=== PATIENT | male | born 1955 | race Caucasian/White ===

== ENCOUNTER 2016-10-12 12:37 | Emergency (ER) | payer MEDICARE ==
[~2016-10-12] VITALS: Ht 182.9 cm; Wt 97.7 kg
[2016-10-12 12:39] VITALS: TEMP 97.9
[2016-10-12 13:06] LABS: BASO % 0.3 % (0.0-2.0); EOS # 0.4 (0.0-0.7); GRAN # 7.2 (1.4-6.5); GRAN % 60.7 % (42.2-75.2); LYMPH # 3.2 (1.2-3.4); LYMPH % 27.2 % (20.0-51.0); MEAN CELL VOLUME 84 fl (80.0-100.0); MEAN CORPUSCULAR HGB CONC 33 g/dl (33.0-37.0); MEAN PLATELET VOLUME 9.5 fl (7.4-10.4); MONO % 8.2 % (1.7-9.3); PLATELET COUNT 448 K/mm3 (130-400); RED BLOOD COUNT 4.17 M/mm3 (4.20-5.60); WHITE BLOOD COUNT 11.9 K/mm3 (4.8-10.8)
[2016-10-12 13:08] LABS: HEMATOCRIT 34.8 % (42.0-52.0); HEMOGLOBIN 11.4 g/dl (13.5-18.0); MEAN CORPUSCULAR HEMOGLOBIN 27 pg (27.0-31.0)
[2016-10-12] MEDS ORDERED: INVOKAMET3 PO (13:11)
[2016-10-12] MEDS ORDERED: LYRICA200 MG PO (13:12)
[2016-10-12] MEDS ORDERED: ZOCOR 40MG40 MG PO (13:12)
[2016-10-12] MEDS ORDERED: FLOMAX 0.40.4 MG/CAP PO (13:13)
[2016-10-12] MEDS ORDERED: PRILOSEC 20MG20 MG PO (13:13)
[2016-10-12] MEDS ORDERED: CYMBALTA 60MG60 MG PO (13:14)
[2016-10-12] MEDS ORDERED: LEVOXYL0.05 MG PO (13:14)
[2016-10-12] MEDS ORDERED: DOLOPHINE HCL5 MG PO (13:15)
[2016-10-12 13:22] LABS: ADJUSTED CALCIUM 9.8 mg/dL (8.4-10.2); ALBUMIN 4.1 gm/dL (3.5-5.0); BILIRUBIN,TOTAL 0.5 mg/dL (0.0-1.0); C-REACTIVE PROTEIN 2.5 mg/dL (0.0-0.9); CALCIUM 9.9 mg/dL (8.4-10.2); CREATININE, serum 0.74 mg/dL (0.66-1.25); POTASSIUM 4.3 mmol/L (3.4-5.0); TOTAL PROTEIN 8.9 gm/dL (6.4-8.2)
[2016-10-12 14:01] LABS: PH 7 (5-8); SQUAMOUS EPITHELIAL 0-2 /hpf; URINE APPEARANCE Clear; URINE BACTERIA None Seen /hpf; URINE BILIRUBIN Negative (NEGATIVE); URINE BLOOD Negative (NEGATIVE); URINE COLOR Yellow; URINE GLUCOSE 3+ (NEGATIVE); URINE KETONE Trace (NEGATIVE); URINE RBC 0-2 /hpf; URINE UROBILINOGEN Negative (NEGATIVE); URINE WBC 0-2 /hpf
[2016-10-12] MEDS ORDERED: CIPRO 250MG TA250 MG PO (14:59)
[2016-10-12 15:59] VITALS: BP 139/78; PULSE 80
== END 2016-10-12 16:00 | disposition home or self-care (01) ==
LOC: COL.ER 12:37
PROVIDERS: Physician Assistant
DX: R33.9 Retention of urine, unspecified (principal); K59.00 Constipation, unspecified; G89.29 Other chronic pain; I10 Essential (primary) hypertension; E11.40 Type 2 diabetes mellitus with diabetic neuropathy, unspecified; K21.9 Gastro-esophageal reflux disease without esophagitis; Z87.39 Personal history of other diseases of the musculoskeletal system and connective tissue; Z90.49 Acquired absence of other specified parts of digestive tract; Z90.89 Acquired absence of other organs; Z79.4 Long term (current) use of insulin; Z79.84 Long term (current) use of oral hypoglycemic drugs
CPT/HCPCS: J1170; J2405; J2550; J7030; Q9967

== ENCOUNTER 2016-11-08 11:49 | Observation (INO) | payer MEDICARE ==
[2016-11-08] VITALS (8 sets, daily range): BP systolic 109–124; BP diastolic 61–77; PULSE 82–93; TEMP 98.7
[~2016-11-08] VITALS: Ht 182.9 cm; Wt 91.4 kg
[~2016-11-08 11:49] MED LIST: CIPRO 250MG TA250 MG PO; CYMBALTA 60MG60 MG PO; DOLOPHINE HCL5 MG PO; FLOMAX 0.40.4 MG/CAP PO; INVOKAMET3 PO; LEVOXYL0.05 MG PO; LYRICA200 MG PO; PRILOSEC 20MG20 MG PO; ZOCOR 40MG40 MG PO
[2016-11-08] MEDS ORDERED: ASPIRIN E.C. 8181 MG PO (13:23)
[2016-11-09 01:57] VITALS: BP 114/63; PULSE 68; TEMP 98.5
[2016-11-09 05:28] VITALS: BP 116/72; PULSE 71; TEMP 97.7
[2016-11-09 05:39] LABS: MEAN CELL VOLUME 83 fl (80.0-100.0); MEAN CORPUSCULAR HGB CONC 31 g/dl (33.0-37.0); MEAN PLATELET VOLUME 9.2 fl (7.4-10.4); PLATELET COUNT 428 K/mm3 (130-400); RED BLOOD COUNT 3.94 M/mm3 (4.20-5.60); WHITE BLOOD COUNT 8.2 K/mm3 (4.8-10.8)
[2016-11-09 05:43] LABS: HEMATOCRIT 32.8 % (42.0-52.0); HEMOGLOBIN 10.1 g/dl (13.5-18.0); MEAN CORPUSCULAR HEMOGLOBIN 26 pg (27.0-31.0)
[2016-11-09 09:37] VITALS: BP 97/59; PULSE 76; TEMP 98.3
[2016-11-09 13:50] VITALS: BP 104/61; PULSE 80; TEMP 98.1
[2016-11-09 17:47] VITALS: BP 111/67; PULSE 72; TEMP 98
[2016-11-09 22:18] VITALS: BP 105/60; PULSE 82; TEMP 98.5
[2016-11-10 01:50] VITALS: BP 128/69; PULSE 77; TEMP 98.5
[2016-11-10 06:06] VITALS: BP 98/53; PULSE 71; TEMP 97.5
[2016-11-10 10:26] VITALS: BP 109/71; PULSE 73; TEMP 97.7
== END 2016-11-10 15:00 | disposition home or self-care (01) ==
LOC: SDCO 11:49 → SURG 17:07 → SDCO 11-09 09:22 → SURG 11-10 15:00
PROVIDERS: Urology
DX: N40.1 Benign prostatic hyperplasia with lower urinary tract symptoms (principal); R33.9 Retention of urine, unspecified; J45.909 Unspecified asthma, uncomplicated; K21.9 Gastro-esophageal reflux disease without esophagitis; I10 Essential (primary) hypertension; E11.9 Type 2 diabetes mellitus without complications; E78.5 Hyperlipidemia, unspecified; E03.9 Hypothyroidism, unspecified; G62.89 Other specified polyneuropathies; E87.1 Hypo-osmolality and hyponatremia; E66.9 Obesity, unspecified; N12 Tubulo-interstitial nephritis, not specified as acute or chronic; J18.9 Pneumonia, unspecified organism; Z68.29 Body mass index [BMI] 29.0-29.9, adult; Z79.4 Long term (current) use of insulin; Z83.3 Family history of diabetes mellitus
CPT/HCPCS: OP; G0378; J0690; J1100; J2270; J2405; J2704; J3010; J7120

== ENCOUNTER → 2018-11-20 | Outpatient (CLI) | payer MEDICARE ==
[~2018-11-20] MED LIST changes: +ASPIRIN E.C. 8181 MG PO
== END ==
LOC: COL.RAD 07:36
DX: K21.9 Gastro-esophageal reflux disease without esophagitis (principal); K59.00 Constipation, unspecified
CPT/HCPCS: A9541